=== PATIENT | female | born 1970 | race American Indian/Alaskan Native ===

== ENCOUNTER 2017-11-16 09:31 | Outpatient (CLI) | payer OTHER ==
--- NOTE | 2017-11-16 16:34 | Mammography Report ---
BILATERAL DIGITAL SCREENING MAMMOGRAM with CAD: 11/16/17 09:31:00 CLINICAL: Baseline screening. FINDINGS: The breasts are heterogeneously dense, which may obscure small masses. Bilateral asymmetries require additional imaging. Architectural distortion associated with the right upper asymmetry.No suspicious calcifications. IMPRESSION: Bilateral asymmetries and right architectural distortion requiring further workup. BI-RADS CATEGORY: 0 -- Additional Imaging Evaluation Required RECOMMENDATION: Recall for bilateral , spot magnification CC and MLO views and bilateral breast ultrasound if needed. ACR BI-RADS MAMMOGRAPHIC CODES: 0 = Needs additional imaging evaluation; 1 = Negative; 2 = Benign; 3 = Probably benign; 4 = Suspicious; 5 = Malignant; 6 = Known biopsy-proven malignancy COMMENT: 1. Dense breast tissue, i.e., adenosis, fibrocystic changes, etc., may obscure an underlying neoplasm. 2. Approximately 10% of cancers are not detected with mammography. 3. A negative mammography report should not delay biopsy if a clinically suspicious mass is present. COMMENT: Patient follow-up letters are generated via our [employer] application.
== END 2017-11-16 09:32 | disposition home or self-care (01) ==
LOC: SPVWC 09:31
PROVIDERS: ATTEND Internal Medicine
DX: Z12.31 Encounter for screening mammogram for malignant neoplasm of breast (principal); D21.9 Benign neoplasm of connective and other soft tissue, unspecified
CPT/HCPCS: 77067

== ENCOUNTER 2017-11-30 07:45 | Outpatient (CLI) | payer OTHER ==
--- NOTE | 2017-11-30 16:38 | Ultrasound Report ---
TRANSABDOMINAL AND TRANSVAGINAL PELVIC ULTRASOUND: 11/30/17 07:45:00 CLINICAL: Uterine fibroids. FINDINGS: Transabdominal and transvaginal pelvic ultrasound demonstrated an enlarged fibroid uterus measuring approximately 17.1 x 10.0 and 9.3 cm. The largest fibroid is posterior in the lower uterine segment in an intramural location and measures 8.1 x 6.8 x 7.5 cm. A right subserosal fundal fibroid measures 5.0 x 4.2 x 4.5 cm. The endometrium is normal and measures 3.0 mm AP thickness. Ovaries are not imaged. No adnexal mass. No free fluid. Normal urinary bladder. IMPRESSION: An enlarged fibroid uterus with somewhat limited imaging due to the size of the uterus in the size of the fibroids. Ovaries were not imaged. Consider MRI of the pelvis without and with contrast for better characterization of the uterine fibroids and for imaging the ovaries.
== END 2017-11-30 07:46 | disposition home or self-care (01) ==
LOC: SPVWC 07:45
PROVIDERS: ATTEND Internal Medicine
DX: D25.1 Intramural leiomyoma of uterus (principal)
CPT/HCPCS: 76830; 76856

== ENCOUNTER 2017-12-14 10:28 | Outpatient (CLI) | payer OTHER ==
--- NOTE | 2017-12-14 13:53 | Mammography Report ---
BILATERAL DIGITAL DIAGNOSTIC MAMMOGRAM and BILATERAL BREAST ULTRASOUND: 12/14/17 10:28:00 CLINICAL: Recalled for bilateral asymmetries. COMPARISON:11/16/17 screening FINDINGS: Bilateral spot magnification views were performed. Partial effacement of the right upper outer asymmetry. Satisfactory effacement of the left asymmetry on the CC view. However, a subtle left asymmetry persists on the MLO spot view. Ultrasound of the right breast (including all four quadrants and the retroareolar area) was performed and demonstrated normal fibroglandular and fatty structures. No mass, cyst or shadowing. Ultrasound of the left breast (including all four quadrants and the retroareolar area) was performed and demonstrated normal fibroglandular and fatty structures. No mass, cyst or shadowing. IMPRESSION: Bilateral probably benign mammographic asymmetries with negative ultrasound. BI-RADS CATEGORY: 3 - - Probably Benign RECOMMENDATION: Six month followup bilateral mammogram. ACR BI-RADS MAMMOGRAPHIC CODES: 0 = Needs additional imaging evaluation; 1 = Negative; 2 = Benign; 3 = Probably benign; 4 = Suspicious; 5 = Malignant; 6 = Known biopsy-proven malignancy COMMENT: 1. Dense breast tissue, i.e., adenosis, fibrocystic changes, etc., may obscure an underlying neoplasm. 2. Approximately 10% of cancers are not detected with mammography. 3. A negative mammography report should not delay biopsy if a clinically suspicious mass is present. COMMENT: Patient follow-up letters are generated via our [employer] application.
== END 2017-12-14 10:29 | disposition home or self-care (01) ==
LOC: SPVWC 10:28
PROVIDERS: ATTEND Internal Medicine
DX: N64.89 Other specified disorders of breast (principal)
CPT/HCPCS: 77066